=== PATIENT | male | born 1995 | race Two or more races ===

== ENCOUNTER 2021-04-13 16:19 | Emergency (ER) | payer OTHER ==
[~2021-04-13] VITALS: Ht 182.9 cm; Wt 68.0 kg
[2021-04-13] MEDS ORDERED: BIKTARVY 50-201 EACH (16:30)
== END 2021-04-13 18:35 | disposition home or self-care (01) ==
LOC: ER 16:19
DX: A54.9 Gonococcal infection, unspecified (principal); Z88.0 Allergy status to penicillin